=== PATIENT | female | born 1945 | race Native Hawaiian/Other Pacific Islander ===

== ENCOUNTER 2018-09-09 07:39 | Outpatient (CLI) | payer MEDICARE, BC, MEDICAID | END 2018-09-09 12:05 | disposition still patient (30) | LOC: C.CARD 07:39 | DX: R06.02 Shortness of breath (principal); I48.2 Chronic atrial fibrillation ==

== ENCOUNTER 2018-09-09 12:05 | Emergency (ER) | payer MEDICARE, BC, MEDICAID ==
[2018-09-09 12:08] VITALS: BMI 22.2
[2018-09-09] MEDS ORDERED: Caffeine Citrated **INJ** 20 MG/ML IV STA (12:10)
--- NOTE | 2018-09-09 12:28 | C.PDOC ---
History Of Present Illness 73 year old female presents to ED with complaint of nausea and epigastric pain that began prior to arrival. Patient's symptoms began after receiving injection during outpatient Lexiscan stress test per Dr. Garcia. Patient has a history of PUD and is on Prilosec, but didn't take her dose today. Patient also complains of SOB. She denies loss of consciousness, vomiting, and diarrhea. NAUSEA EPIG PAIN ONSET [employer]. ONSET AFTER RECEIVING INJECTION DURING OUTPT LEXISCAN STRESS TEST PER DR GARCIA. HO PUD, ON PRILOSEC BUT NO DOSE TODAY. EPIG PAIN, +NAUSEA. +SOB NO SYNCOPE. EXAM MILD DIST NONTOXIC LUNGS CT AB/L NO W/R/R CV RRR ABD NEG REMAINDER NEG MDM NAUSEA, EPIG PAIN PROBABLE DUE TO LEXISCAN PER DR GARCIA. CAFFEINE CITRATE, RECOMMENDS ER OBS DC IF IMPROVED Time Seen by Provider: 09/09/18 12:09 Chief Complaint (Nursing): Abdominal Pain History Per: Patient History/Exam Limitations: no limitations Onset/Duration Of Symptoms: Hrs Current Symptoms Are (Timing): Still Present Quality Of Discomfort: "Pain" Associated Symptoms: Nausea. denies: Fever, Chills, Vomiting, Diarrhea Past Medical History Reviewed: Historical Data, Nursing Documentation, Vital Signs Vital Signs: Last Vital Signs Temp 97.8 F 09/09/18 12:09 Pulse 80 09/09/18 12:09 Resp 20 09/09/18 12:09 BP 150/63 09/09/18 12:09 Pulse Ox 100 09/09/18 12:09 Primary Care Provider: Elmer Garcia - Medical History PMH: Diabetes, HTN, End Stage Renal Disease, Chronic Kidney Disease Surgical History: No Surg Hx - [facility] Procedures SERUM TRANSFUSION NEC (08/16/14) Family History: States: Unknown Family Hx - Social History Hx Tobacco Use: No Hx Alcohol Use: No Hx Substance Use: No - Immunization History Hx Tetanus Toxoid Vaccination: Yes Hx Influenza Vaccination: Yes Hx Pneumococcal Vaccination: Yes Review Of Systems Except As Marked, All Systems Reviewed And Found Negative. Respiratory: Positive for: Shortness of Breath Gastrointestinal: Positive for: Nausea, Abdominal Pain (epigastric pain ) Physical Exam - Physical Exam Appears: Non-toxic, Other (mild distress) Skin: Normal Color, Warm, Dry Head: Atraumatic, Normacephalic Neck: Normal ROM, Supple Chest: Symmetrical, No Deformity Cardiovascular: Rhythm Regular, No Murmur Respiratory: No Accessory Muscle Use, No Rales, No Rhonchi, No Wheezing, Other (NARD) Gastrointestinal/Abdominal: Soft, No Tenderness, No Distention, No Guarding, No Rebound Extremity: Capillary Refill (<2 seconds) Extremity: Bilateral: Atraumatic, Normal Color And Temperature, Normal ROM Pulses: Left Radial: Normal, Right Radial: Normal Neurological/Psych: Oriented x3, Normal Speech, Normal Cognition ED Course And Treatment ECG: Interpreted By Me ECG Rhythm: Atrial Fibrillation ECG Interpretation: Normal, No Acute Changes Rate From EC O2 Sat by Pulse Oximetry: 100 Progress Note: Patient given caffeine citrate IV, Pepcid IVP, Protonix IVP, IV fluids, and Zofran IVP. Progress - Re-Evaluation Re-evaluation Note: 09/09/18 13:42 FEELS BETTER STILL W RESIDUAL EPIG PAIN. VSS. APPEARS IMPROVED FROM PRIOR EXAM. 09/09/18 14:58 PT ASYMPT REQUESTING DC HOME. D/W DR GARCIA AGREES W DC PLAN Medical Decision Making Medical Decision Making: Nausea and epigastric pain probably due to Lexiscan per . Patient to be given caffeine citrate and Dr. Garcia recommends ER observation and to discharge if improved. Disposition Counseled Patient/Family Regarding: Diagnosis, Need For Followup, Rx Given - Disposition Referrals: Elmer Garcia MD [Staff Provider] - Disposition: HOME/ ROUTINE Disposition Time: 14:57 Condition: IMPROVED Prescriptions: Ondansetron ODT [Zofran ODT] 4 mg PO TID PRN #12 odt PRN Reason: Nausea/Vomiting Instructions: Nausea and Vomiting, Adult (DC) Forms: [employer] ([place]) - Clinical Impression Clinical Impression: Vomiting, Medication reaction - Scribe Statement The provider has reviewed the documentation as recorded by the Scribe (Dior Keenan) All medical record entries made by the Scribe were at my direction and personally dictated by me. I have reviewed the chart and agree that the record accurately reflects my personal performance of the history, physical exam, medical decision making, and the department course for this patient. I have also personally directed, reviewed, and agree with the discharge instructions and disposition.
[2018-09-09] MEDS ORDERED: Sodium Chloride 0.9% 1,000 ML IV SCH (12:30)
[2018-09-09] MEDS ORDERED: Sodium Chloride 0.9% 1,000 ML ONE (12:37)
[2018-09-09] MEDS ORDERED: Alum-Mag Hydrox-Simethicone Susp (30 mL) PO STA (13:42)
[2018-09-09] MEDS ORDERED: Alum-Mag Hydrox-Simethicone Susp (30 mL) ONE (13:50)
[2018-09-09 15:18] VITALS: BP 144/66; PULSE 65; RESP 13; TEMP 98.1; O2SAT 98
--- NOTE | 2018-09-11 14:12 | CARD ---
APPROVED REPORT Date of service: 09/09/2018 EKG Measurement Heart [id number] <Conclusion> Atrial fibrillation Prolonged QT Abnormal ECG
== END 2018-09-09 15:23 | disposition home or self-care (01) ==
LOC: C.ER 12:05
DX: R11.2 Nausea with vomiting, unspecified (principal); T50.905A Adverse effect of unspecified drugs, medicaments and biological substances, initial encounter
CPT/HCPCS: 93005; 96361; 96374; 96375; 99285; C9113; J0706; J2405; J7030